=== PATIENT | female | born 1970 | race American Indian/Alaskan Native ===

== ENCOUNTER 2021-01-27 07:45 | Emergency (ER) | payer BC ==
[2021-01-27 08:21] VITALS: BP 175/92
--- NOTE | 2021-01-27 10:22 | Emergency Department Report ---
ED General Adult HPI - General Chief complaint: Back Pain/Injury Stated complaint: LOWER BACK PAIN RT SIDE Time Seen by Provider: 01/27/21 10:13 Source: patient Mode of arrival: Ambulatory Limitations: No Limitations - History of Present Illness Initial comments: Patient is a 50-year-old female presents emergency room complaints of right flank pain that began yesterday morning. She states that she woke up with it. She states her pain is worse with bending forward. She denies any fall or injury. She denies any fever, nausea, vomiting, diarrhea, abdominal pain, dysuria, dark urine, odor to the urine, hematuria, numbness, weakness, bowel or bladder incontinence, radiation of the pain. Past medical history of hypertension. She states that she did not take her blood pressure medication today. No allergies to medications. She states that she was concerned due to the fact that her mother from renal disease. - Related Data Previous Rx's Medication Instructions Recorded Last Taken Type Naproxen 375 mg PO BID PRN #20 tablet 01/27/21 Unknown Rx methOCARBAMOL [Robaxin TAB] 500 mg PO BID PRN #20 tab 01/27/21 Unknown Rx traMADoL [Ultram 50 MG tab] 50 mg PO Q6HR PRN #12 tablet 01/27/21 Unknown Rx Allergies Allergy/AdvReac Type Severity Reaction Status Date / Time No Known Allergies Allergy Unverified 01/27/21 08:15 ED Review of Systems ROS: Stated complaint: LOWER BACK PAIN RT SIDE Other details as noted in HPI Comment: All other systems reviewed and negative ED Past Medical Hx - Past Medical History Previous Medical History?: Yes Hx Hypertension: Yes - Surgical History Past Surgical History?: Yes Hx Breast Surgery: Yes (Breast reduction ) - Social History Smoking Status: Never Smoker Substance Use Type: Prescribed - Medications Home Medications: Home Medications Medication Instructions Recorded Confirmed Last Taken Type Naproxen 375 mg PO BID PRN #20 tablet 01/27/21 Unknown Rx methOCARBAMOL [Robaxin TAB] 500 mg PO BID PRN #20 tab 01/27/21 Unknown Rx traMADoL [Ultram 50 MG tab] 50 mg PO Q6HR PRN #12 tablet 01/27/21 Unknown Rx ED Physical Exam - General Limitations: No Limitations General appearance: alert, in no apparent distress - Head Head exam: Present: atraumatic, normocephalic - Eye Eye exam: Present: normal appearance - ENT ENT exam: Present: mucous membranes moist - Neck Neck exam: Present: normal inspection, full ROM. Absent: tenderness, meningismus - Respiratory Respiratory exam: Present: normal lung sounds bilaterally. Absent: respiratory distress, wheezes, rales, rhonchi, stridor, chest wall tenderness, accessory muscle use, decreased breath sounds, prolonged expiratory - Cardiovascular Cardiovascular Exam: Present: regular rate, normal rhythm, normal heart sounds. Absent: systolic murmur, diastolic murmur, rubs, gallop - GI/Abdominal GI/Abdominal exam: Present: soft. Absent: distended, tenderness, guarding, rebound, rigid - Back Exam Back exam: Present: normal inspection, full ROM, CVA tenderness (R). Absent: CVA tenderness (L), paraspinal tenderness, vertebral tenderness - Neurological Exam Neurological exam: Present: alert, oriented X3, CN II-XII intact, normal gait. Absent: motor sensory deficit - Psychiatric Psychiatric exam: Present: normal affect, normal mood - Skin Skin exam: Present: warm, dry, intact ED Course Vital Signs 01/27/21 08:15 Temperature 98.4 F Pulse Rate 78 Respiratory 18 Rate Blood Pressure 175/92 O2 Sat by Pulse 100 Oximetry ED Medical Decision Making - Lab Data Result diagrams: 01/27/21 10:25 01/27/21 10:25 Lab Results 01/27/21 01/27/21 01/27/21 Range/Units 10:25 10:25 Unknown WBC 5.4 (4.5-11.0) K/mm3 RBC 4.00 (3.65-5.03) M/mm3 Hgb 10.4 (10.1-14.3) gm/dl Hct 32.1 (30.3-42.9) % MCV 80 (79-97) fl MCH 26 L (28-32) pg MCHC 32 (30-34) % RDW 17.4 H (13.2-15.2) % Plt Count 229 (140-440) K/mm3 Lymph % (Auto) 37.0 H (13.4-35.0) % [place] % (Auto) 7.0 (0.0-7.3) % Eos % (Auto) 1.3 (0.0-4.3) % Baso % (Auto) 0.3 (0.0-1.8) % Lymph # (Auto) 2.0 (1.2-5.4) K/mm3 [place] # (Auto) 0.4 (0.0-0.8) K/mm3 Eos # (Auto) 0.1 (0.0-0.4) K/mm3 Baso # (Auto) 0.0 (0.0-0.1) K/mm3 Seg Neutrophils % 54.4 (40.0-70.0) % Seg Neutrophils # 2.9 (1.8-7.7) K/mm3 Sodium 139 (137-145) mmol/L Potassium 3.6 (3.6-5.0) mmol/L Chloride 103.8 (98-107) mmol/L Carbon Dioxide 25 (22-30) mmol/L Anion Gap 14 mmol/L BUN 12 (7-17) mg/dL Creatinine 0.7 (0.6-1.2) mg/dL Estimated GFR > 60 ml/min BUN/Creatinine Ratio 17 % Glucose 88 (65-100) mg/dL Calcium 9.5 (8.4-10.2) mg/dL Total Bilirubin 0.20 (0.1-1.2) mg/dL AST 24 (5-40) units/L ALT 25 (7-56) units/L Alkaline Phosphatase 87 (35-129) units/L Total Protein 8.9 H (6.3-8.2) g/dL Albumin 4.2 (3.9-5) g/dL Albumin/Globulin Ratio 0.9 % Urine Color Straw (Yellow) Urine Turbidity Clear (Clear) Urine pH 6.0 (5.0-7.0) Ur Specific [place] 1.009 (1.003-1.030) Urine Protein <15 mg/dl (Negative) mg/dL Urine Glucose (UA) Neg (Negative) mg/dL Urine Ketones Neg (Negative) mg/dL Urine Blood Neg (Negative) Urine Nitrite Neg (Negative) Urine Bilirubin Neg (Negative) Urine Urobilinogen < 2.0 (<2.0) mg/dL Ur Leukocyte Esterase Neg (Negative) Urine WBC (Auto) < 1.0 (0.0-6.0) /HPF Urine RBC (Auto) 0.0 (0.0-6.0) /HPF U Epithel Cells (Auto) 2.0 (0-13.0) /HPF Urine Bacteria (Auto) 1+ (Negative) /HPF - Radiology Data Radiology results: report reviewed Ordering Physician: DENYS MAN Date of Service: 01/27/21 Procedure(s): CT abdomen pelvis wo con Accession Number(s): [id number] cc: DENYS MAN CT ABDOMEN AND PELVIS WITHOUT CONTRAST INDICATION: right flank pain. TECHNIQUE: Axial CT images were obtained through the abdomen and pelvis without IV co ntrast. All CT scans at this location are performed using CT dose reduction for ALARA by means of automated exposure cont rol. COMPARISON: None available. FINDINGS: LOWER CHEST: No significant abnormality. LIVER: No significant abnormality. GALLBLADDER: No significant abnormality. BILE DUCTS: No significant abnormality. PANCREAS: No significant abnormality. SPLEEN: No significant abnormality. ADRENALS: No significant abnormality. RIGHT KIDNEY and URETER: No significant abnormality. LEFT KIDNEY and URETER: No significant abnormality. STOMACH and SMALL BOWEL: No significant abnormality. COLON: No significant abnormality. APPENDIX: No significant abnormality. PERITONEUM: No free fluid. No free air. No fluid collection. LYMPH NODES: No significant adenopathy. AORTA and ARTERIES: No significant abnormality. IVC and VEINS: No significant abnormality. URINARY BLADDER: No significant abnormality. REPRODUCTIVE ORGANS: Complex bilateral ovarian cysts with internal septations possibly representing hydrosalpinx. The right adnexa measures 6.5 x 5.6 cm and left adnexa measures 4.3 x 2.9 cm. Fluid- filled mildly dilated lower uterine segment/cervix. ADDITIONAL FINDINGS: Moderate-sized fat-containing umbilical hernia SKELETAL SYSTEM: No significant abnormality. IMPRESSION: 1. Complex bilateral cystic adnexal lesions likely representing hydrosalpinx. Tubo-ovarian abscess cannot be excluded. Recommend pelvic ultrasound. * Since women in early postmenopause occasionally ovulate and, therefore, develop complex cysts with the appearance of a classic hemorrhagic cyst, any such cyst should be described in the imaging report; short-interval follow-up (612 weeks) with US recommended to ensure resolution. 2. No urinary tract calculi or hydronephrosis 3. Moderate-sized fat-containing umbilical hernia Signer Name: Trip Kemp MD Signed: 01/27/2021 11:13 AM Workstation Name: [id number] Transcribed By: TL Dictated By: Trip Kemp MD Electronically Authenticated By: Trip Kemp MD Signed Date/Time: 01/27/21 1113 DD/ 1110 TD/TT: Ordering Physician: DENYS MAN Date of Service: 01/27/21 Procedure(s): US transvaginal Accession Number(s): [id number] cc: DENYS MAN ULTRASOUND PELVIS INDICATION: right flank pain, abnormality on CT. TECHNIQUE: Transvaginal. Duplex Color Doppler used: Yes. COMPARISON: CT pelvis earlier today FINDINGS: Uterus: Present. Size: 8.1 x 3.8 x 5.8 cm. Endometrial complex: Normal measuring 4 mm. Mass lesions: None. Additional findings: Moderate amount of fluid within the endocervix Right Ovary --5.3 x 7.3 x 1.5 cm cyst with thin internal septation Left Ovary--3.4 x 1.9 x 2.6 cm complex cyst with internal echoes and thin septations. Urinary Bladder: Normal. Free Fluid: None. Additional Findings: None. IMPRESSION: 1. Marked amount of fluid within the endocervix. These correlate clinically with [employer] pelvic exam 2. Complex bilateral ovarian cysts. No sonographic evidence for hydrosalpinx/tubo-ovarian abscess. Signer Name: Trip Kemp MD Signed: 01/27/2021 12:24 PM Workstation Name: [id number] Transcribed By: Dictated By: Trip Kemp MD Electronically Authenticated By: Trip Kemp MD Signed Date/Time: 01/27/21 1224 DD/ 1220 TD/TT: - Medical Decision Making Patient is a 50-year-old female presents emergency room complaints of right flank pain that began yesterday morning. She states that she woke up with it. She states her pain is worse with bending forward. She denies any fall or injury. She denies any fever, nausea, vomiting, diarrhea, abdominal pain, dysuria, dark urine, odor to the urine, hematuria, numbness, weakness, bowel or bladder incontinence, radiation of the pain. Past medical history of hypertension. She states that she did not take her blood pressure medication today. No allergies to medications. She states that she was concerned due to the fact that her mother from renal disease. vss. On exam patient has right CVA tenderness. Labs are normal. UA is within normal limits. CT abdomen pelvis without contrast: 1. Complex bilateral cystic adnexal lesions likely representing hydrosalpinx. Tubo-ovarian abscess cannot be excluded. Recommend pelvic ultrasound. * Since women in early postmenopause occasionally ovulate and, therefore, develop complex cysts with the appearance of a classic hemorrhagic cyst, any such cyst should be described in the imaging report; short-interval follow-up (612 weeks) with US recommended to ensure resolution. 2. No urinary tract calculi or hydronephrosis 3. Moderate-sized fat-containing umbilical hernia. Pelvic ultrasound: 1. Marked amount of fluid within the endocervix. These correlate clinically with [employer] pelvic exam 2. Complex bilateral ovarian cysts. No sonographic evidence for hydrosalpinx/tubo-ovarian abscess. Discussed all results with patient and answer questions. I discussed the recommendation of pelvic exam given the fluid, patient politely declines, she states that she would like to wait until she sees her primary care doctor or her [employer], she states that her primary care doctor typically does her pelvic examinations and she had one earlier this year and she states that she would not like to have one completed today in the emergency department. Patient was given a copy of her ultrasound report. Discussed the importance of close outpatient follow-up. Patient given prescription for medications. Advised patient please follow up with a primary care doctor. please follow up with an [employer]. return to the emergency room for any new or worsening symptoms Critical care attestation.: If time is entered above; I have spent that time in minutes in the direct care of this critically ill patient, excluding procedure time. ED Disposition Clinical Impression: Right flank pain, Complex ovarian cyst Disposition: HOME / SELF CARE / HOMELESS Is pt being admited?: No Does the pt Need Aspirin: No Condition: Stable Instructions: Flank Pain, Adult, [id number], Ovarian Cyst Additional Instructions: * please follow up with a primary care doctor. please follow up with an [employer]. return to the emergency room for any new or worsening symptoms Prescriptions: Naproxen 375 mg PO BID PRN #20 tablet PRN Reason: pain methOCARBAMOL [Robaxin TAB] 500 mg PO BID PRN #20 tab PRN Reason: muscle spasm/pain traMADoL [Ultram 50 MG tab] 50 mg PO Q6HR PRN #12 tablet PRN Reason: Pain , Severe (7-10) Referrals: SILVERIO MADRID MD [Primary Care Provider] - 2-3 Days KENAN GARNER MD [Staff Physician] - 2-3 Days Time of Disposition: 12:49 Print Language: MALTESE
[2021-01-27 11:00] LABS: Alanine Aminotransferase 25 units/L (7-56); Albumin 4.2 g/dL (3.9-5); Blood Urea Nitrogen 12 mg/dL (7-17); Calcium 9.5 mg/dL (8.4-10.2); Hemolysis Index 3
[2021-01-27 11:13] LABS: Bacteria,Urine 1+ /HPF (Negative); Bilirubin,Urine NEG (Negative); Blood,Urine NEG (Negative); Color,Urine Straw (Yellow); Protein,Urine <15 mg/dL mg/dL (Negative); Urobilinogen,Urine < 2.0 mg/dL (<2.0); WBC,Urine < 1.0 /HPF (0.0-6.0)
[2021-01-27 11:14] LABS: BUN/Creatinine Ratio 17
--- NOTE | 2021-01-27 11:18 | Cat Scan Report ---
CT ABDOMEN AND PELVIS WITHOUT CONTRAST INDICATION: right flank pain. TECHNIQUE: Axial CT images were obtained through the abdomen and pelvis without IV contrast. All CT scans at [facility] are performed using CT dose reduction for ALARA by means of automated exposure control. COMPARISON: None available. FINDINGS: LOWER CHEST: No significant abnormality. LIVER: No significant abnormality. GALLBLADDER: No significant abnormality. BILE DUCTS: No significant abnormality. PANCREAS: No significant abnormality. SPLEEN: No significant abnormality. ADRENALS: No significant abnormality. RIGHT KIDNEY and URETER: No significant abnormality. LEFT KIDNEY and URETER: No significant abnormality. STOMACH and SMALL BOWEL: No significant abnormality. COLON: No significant abnormality. APPENDIX: No significant abnormality. PERITONEUM: No free fluid. No free air. No fluid collection. LYMPH NODES: No significant adenopathy. AORTA and ARTERIES: No significant abnormality. IVC and VEINS: No significant abnormality. URINARY BLADDER: No significant abnormality. REPRODUCTIVE ORGANS: Complex bilateral ovarian cysts with internal septations possibly representing h ydrosalpinx. The right adnexa measures 6.5 x 5.6 cm and left adnexa measures 4.3 x 2.9 cm. Fluid-fill ed mildly dilated lower uterine segment/cervix. ADDITIONAL FINDINGS: Moderate-sized fat-containing umbilical hernia SKELETAL SYSTEM: No significant abnormality. IMPRESSION: 1. Complex bilateral cystic adnexal lesions likely representing hydrosalpinx. Tubo-ovarian abscess ca nnot be excluded. Recommend pelvic ultrasound. * Since women in early postmenopause occasionally ovulate and, therefore, develop complex cysts with the appearance of a classic hemorrhagic cyst, any such cyst should be described in the imaging repor t; short-interval follow-up (612 weeks) with US recommended to ensure resolution. 2. No urinary tract calculi or hydronephrosis 3. Moderate-sized fat-containing umbilical hernia Signer Name: Trip Kemp MD Signed: 01/27/2021 11:13 AM Workstation Name: [id number]
[2021-01-27 11:21] LABS: Basophils % (Auto) 0.3 % (0.0-1.8); Eosinophils # (Auto) 0.1 K/mm3 (0.0-0.4); Eosinophils % (Auto) 1.3 % (0.0-4.3); Hematocrit 32.1 % (30.3-42.9); Hemoglobin 10.4 gm/dl (10.1-14.3); Mean Corpuscular HGB Conc 32 % (30-34); Mean Corpuscular Volume 80 fl (79-97); Monocytes # (Auto) 0.4 K/mm3 (0.0-0.8); Platelet Count 229 K/mm3 (140-440); Red Cell Distribution Width 17.4 % (13.2-15.2)
--- NOTE | 2021-01-27 12:28 | Ultrasound Report ---
ULTRASOUND PELVIS INDICATION: right flank pain, abnormality on CT. TECHNIQUE: Transvaginal. Duplex Color Doppler used: Yes. COMPARISON: CT pelvis earlier today FINDINGS: Uterus: Present. Size: 8.1 x 3.8 x 5.8 cm. Endometrial complex: Normal measuring 4 mm. Mass lesions: None. Additional findings: Moderate amount of fluid within the endocervix Right Ovary --5.3 x 7.3 x 1.5 cm cyst with thin internal septation Left Ovary--3.4 x 1.9 x 2.6 cm complex cyst with internal echoes and thin septations. Urinary Bladder: Normal. Free Fluid: None. Additional Findings: None. IMPRESSION: 1. Marked amount of fluid within the endocervix. These correlate clinically with [employer] pelvic exam 2. Complex bilateral ovarian cysts. No sonographic evidence for hydrosalpinx/tubo-ovarian abscess. Signer Name: Trip Kemp MD Signed: 01/27/2021 12:24 PM Workstation Name: [id number]
== END 2021-01-27 12:35 | disposition home or self-care (01) ==
LOC: ED 07:45
DX: R10.9 Unspecified abdominal pain (principal); N83.292 Other ovarian cyst, left side; N83.291 Other ovarian cyst, right side; I10 Essential (primary) hypertension; Z98.890 Other specified postprocedural states
CPT/HCPCS: 36415; 74176; 76830; 80053; 81001; 85025; 99284